=== PATIENT | male | born 1945 | race Caucasian/White ===

== ENCOUNTER 2019-04-30 18:51 | Inpatient (IN) | payer MEDICARE ==
[~2019-04-30] VITALS: Ht 190.5 cm; Wt 98.1 kg
--- NOTE | 2019-04-30 20:01 | RAD ---
CT head without contrast. Maxilla facial CT without contrast. CT cervical spine without contrast. HISTORY: Fall, facial laceration. PQRS statement: CT scans at this facility use dose reduction including either automated exposure control, iterative reconstructions, and /or weight based radiation dosing via mA and kV modification when appropriate to reduce radiation dose to as low as reasonably achievable. CT head findings: Generalized brain atrophy. No intracranial hemorrhage, mass, hydrocephalus, extra-axial fluid collections or infarction. Small volume of fluid right sphenoid sinus. Skull base, calvarium, orbits and mastoids intact. IMPRESSION: No acute intracranial CT abnormality. Small volume of fluid within the sphenoid sinus could represent sinusitis. Maxillofacial CT findings: Right maxillary sinus is atelectatic. Facial bones intact. No facial bone fracture. Mandible, maxilla, nasal bones and orbits intact. No orbital edema or hematoma. There is mild right facial soft tissue edema overlying the maxilla. IMPRESSION: Facial bones intact. CT cervical spine findings: Craniocervical junction intact. Small bone cyst of the base of the C2 odontoid and arthritic change at the atlantodental articulation. Cervical vertebral body height and alignment intact. 2 mm anterolisthesis of C3 on C4 associated with facet arthritis. Multilevel cervical disc height loss, soft disc bulges as well as prominent endplate and uncovertebral facet spurs with spinal canal and neural foraminal stenoses with severe stenotic disease at several levels the degree of which likely increases risk for spinal cord impingement at C4-C5 and C5-C6. Lung apices and paraspinal tissues are unremarkable. IMPRESSION: No acute osseous injury of the cervical spine. Cervical disc disease and arthritic change as described above. Exposure: One or more of the following individualized dose reduction techniques were utilized for this examination: 1. Automated exposure control 2. Adjustment of the mA and/or kV according to patient size 3. Use of iterative reconstruction technique Electronically signed by: Bari Hays MD (04/30/2019 7:58 PM) [facility]
--- NOTE | 2019-04-30 20:55 | RAD ---
Left elbow x-rays 3 views HISTORY: Fall, pain. FINDINGS: Only 2 oblique lateral and AP films are acquired. Due to the obliquity and overlapping of bony densities there is limited assessment for nondisplaced intra-articular fractures or elevation of the fat pads due to a radiographically occult fracture from a joint effusion. In light of this no obvious fracture is evident. There is probable spurring of the ulna coronoid. If there is a high clinical suspicion of a fracture consider repeat imaging with better patient positioning or CT imaging. IMPRESSION: No acute osseous injury evident. Please see discussion above. Left humerus AP lateral x-rays 2 views HISTORY: Fall, pain. FINDINGS: There is acute traumatic spiral fracture of the humeral neck and proximal shaft distracted by at least 3 cm at its lower aspect. No humeral head dislocation evident. Soft tissues unremarkable. IMPRESSION: Acute traumatic spiral fracture with mild distraction of the humeral neck and proximal humeral shaft. IMPRESSION: Oblique positioning limits sensitivity to detect a fracture. No gross evidence of a fracture or dislocation. See discussion above. Electronically signed by: Bari Hays MD (04/30/2019 8:52 PM) [facility]
--- NOTE | 2019-04-30 21:11 | PHYS DOC ---
Past Medical History Past Medical History: Dementia, High Cholesterol, Hypertension, Other (drop foot bilaterally) (YNES BHATTI APRN) Past Surgical History: No Surgical History (YNES BHATTI APRN) Alcohol Use: None Drug Use: None (YNES BHATTI APRN) Attending Signature I have participated in the care of this patient and I have reviewed and agree with all pertinent clinical information above including history, exam, and recommendations. (BONIFACIO MCKEON MD) Adult General Chief Complaint Chief Complaint: MECHANICAL FALL HPI HPI Patient is a 73 year old male with history of diabetes type 2, high cholesterol, dementia, dropped feet bilaterally, who presents to the ED today with the , states patient was walking in the house and fell. Patient is complaining of left humerus pain. denies patient having any loss of consciousness. is in panic moderate right now speaking very fast. Patient is calm in no distress. (YNES BHATTI APRN) Review of Systems Review of Systems Constitutional: Denies fever or chills [] Eyes: Denies change in visual acuity, redness, or eye pain [] HENT: Denies nasal congestion or sore throat [] Respiratory: Denies cough or shortness of breath [] Cardiovascular: No additional information not addressed in HPI [] GI: Denies abdominal pain, nausea, vomiting, bloody stools or diarrhea [] : Denies dysuria or hematuria [] Musculoskeletal: Left humerus pain Integument: Denies rash or skin lesions [] Neurologic: Denies headache, focal weakness or sensory changes [] All other systems were reviewed and found to be within normal limits, except as documented in this note. (YNES BHATTI APRN) Current Medications Current Medications Current Medications Medications (Trade) Dose Ordered Sig/Archie Start Time Stop Time Status Last Admin Dose Admin Morphine Sulfate (Morphine Sulfate) 4 mg PRN Q2HR PRN 04/30/19 21:15 05/01/19 21:14 04/30/19 21:52 4 MG (BONIFACIO MCKEON MD) Allergies Allergies Allergies Coded Allergies Type Severity Reaction Last Updated Verified No Known Drug Allergies 04/30/19 No (BONIFACIO MCKEON MD) Physical Exam Physical Exam Constitutional: Well developed, well nourished, no acute distress, non-toxic appearance. [] HENT: Normocephalic, atraumatic, bilateral external ears normal, oropharynx moist, no oral exudates, nose normal. [] Eyes: PERRLA, EOMI, conjunctiva normal, no discharge. [] Neck: Normal range of motion, no tenderness, supple, no stridor. [] Cardiovascular:Heart rate regular rhythm, no murmur [] Lungs & Thorax: Bilateral breath sounds clear to auscultation [] Abdomen: Bowel sounds normal, soft, no tenderness, no masses, no pulsatile masses. [] Skin: Warm, dry, bruising noted on the chin with trace bleeding. Back: No tenderness, no CVA tenderness. [] Extremities: Left upper extremity with no obvious deformity. Tenderness on palpation of the mid humerus. Slightly Limited passive range of motion to the left upper extremity due to pain. Adequate radial, medial, or loss of sensation to the left upper extremity. +2 left radial pulse. Cap refill less than 2 seconds the left fingers. Neurologic: Alert and oriented X 1-2, normal motor function, normal sensory function, no focal deficits noted. [] Psychologic: Affect normal, judgement normal, mood normal. [] (YNES BHATTI APRN) Current Patient Data Vital Signs Vital Signs Date Time Temp Pulse Resp B/P (MAP) Pulse Ox O2 Delivery O2 Flow Rate FiO2 04/30/19 22:02 94 16 04/30/19 21:52 99 Room Air 04/30/19 18:51 97.9 180/97 (124) 97.9 (BONIFACIO MCKEON MD) Lab Values Laboratory Tests Test 04/30/19 20:14 White Blood Count 9.6 x10^3/uL (4.0-11.0) Red Blood Count 4.56 x10^6/uL (4.30-5.70) Hemoglobin 14.1 g/dL (13.0-17.5) Hematocrit 42.0 % (39.0-53.0) Mean Corpuscular Volume 92 fL (79-100) Mean Corpuscular Hemoglobin 31 pg (25-35) Mean Corpuscular Hemoglobin Concent 34 g/dL (31-37) Red Cell Distribution Width 13.6 % (11.5-14.5) Platelet Count 209 x10^3/uL (140-400) Neutrophils (%) (Auto) 85 % (31-73) H Lymphocytes (%) (Auto) 7 % (24-48) L Monocytes (%) (Auto) 6 % (0-9) Eosinophils (%) (Auto) 1 % (0-3) Basophils (%) (Auto) 1 % (0-3) Neutrophils # (Auto) 8.1 x10^3/uL (1.8-7.7) H Lymphocytes # (Auto) 0.7 x10^3/uL (1.0-4.8) L Monocytes # (Auto) 0.6 x10^3/uL (0.0-1.1) Eosinophils # (Auto) 0.1 x10^3/uL (0.0-0.7) Basophils # (Auto) 0.1 x10^3/uL (0.0-0.2) Sodium Level 140 mmol/L (136-145) Potassium Level 3.2 mmol/L (3.5-5.1) L Chloride Level 101 mmol/L (98-107) Carbon Dioxide Level 31 mmol/L (21-32) Anion Gap 8 (6-14) Blood Urea Nitrogen 12 mg/dL (8-26) Creatinine 1.0 mg/dL (0.7-1.3) Estimated GFR (Cockcroft-Gault) 73.0 BUN/Creatinine Ratio 12 (6-20) Glucose Level 154 mg/dL (70-99) H Calcium Level 8.9 mg/dL (8.5-10.1) Total Bilirubin 0.5 mg/dL (0.2-1.0) Aspartate Amino Transferase (AST) 17 U/L (15-37) Alanine Aminotransferase (ALT) 18 U/L (16-63) Alkaline Phosphatase 98 U/L (46-116) Total Protein 7.1 g/dL (6.4-8.2) Albumin 3.7 g/dL (3.4-5.0) Albumin/Globulin Ratio 1.1 (1.0-1.7) Laboratory Tests 04/30/19 20:14 Laboratory Tests 04/30/19 20:14 (BONIFACIO MCKEON MD) EKG EKG [] (YNES BHATTI APRN) Radiology/Procedures Radiology/Procedures []PROCEDURE: ELBOW LEFT 2V Left elbow x-rays 3 views HISTORY: Fall, pain. FINDINGS: Only 2 oblique lateral and AP films are acquired. Due to the obliquity and overlapping of bony densities there is limited assessment for nondisplaced intra-articular fractures or elevation of the fat pads due to a radiographically occult fracture from a joint effusion. In light of this no obvious fracture is evident. There is probable spurring of the ulna coronoid. If there is a high clinical suspicion of a fracture consider repeat imaging with better patient positioning or CT imaging. IMPRESSION: No acute osseous injury evident. Please see discussion above. Left humerus AP lateral x-rays 2 views HISTORY: Fall, pain. FINDINGS: There is acute traumatic spiral fracture of the humeral neck and proximal shaft distracted by at least 3 cm at its lower aspect. No humeral head dislocation evident. Soft tissues unremarkable. IMPRESSION: Acute traumatic spiral fracture with mild distraction of the humeral neck and proximal humeral shaft. IMPRESSION: Oblique positioning limits sensitivity to detect a fracture. No gross evidence of a fracture or dislocation. See discussion above. Electronically signed by: Naty Hays MD (04/30/2019 8:52 PM) [facility] DICTATED and SIGNED BY: NATY HAYS MD DATE: 04/30/192051 (YNES BHATTI APRN) Course & Med Decision Making Course & Med Decision Making Pertinent Labs and Imaging studies reviewed. (See chart for details) This is a 73-year-old male patient presenting to the ED today with left humerus pain after falling. Left humeral x-rays interpreted by radiologist were noted for-acute traumatic spiral fracture with mild distraction of the humeral neck and proximal humeral shaft. CT of the head, cervical spine, maxillofacial were negative for any acute findings. Sling provided to the left upper extremity by the ED RN. Neurovascular exam is intact. is requesting patient to be admitted because she has to work 8 hours a day and would like home health as well as what ever helpe they can get at home arranged, unfortunately we are not able to set up the care they need at home from the ED. Spoke with Dr. Dennis who accepted patient for admission Routine consult placed for Dr. Rendon (YNES BHATTI APRN) Martita Disclaimer Dragon Disclaimer This electronic medical record was generated, in whole or in part, using a voice recognition dictation system. (YNES BHATTI APRN) Departure Departure Impression: Primary Impression: Fall Additional Impressions: Left humeral fracture Chin contusion Disposition: ADMITTED INPATIENT Condition: STABLE Referrals: RAYMOND ESTRADA MD (PCP) Problem Qualifiers Primary Impression: Fall Encounter type: initial encounter Qualified Codes: W19.XXXA - Unspecified fall, initial encounter Additional Impressions: Left humeral fracture Encounter type: initial encounter Humerus Location: shaft Fracture type: closed Fracture morphology: oblique Fracture alignment: nondisplaced Qualified Codes: S42.335A - Nondisplaced oblique fracture of shaft of humerus, left arm, initial encounter for closed fracture Chin contusion Encounter type: initial encounter Qualified Codes: S00.83XA - Contusion of other part of head, initial encounter YNES BHATTI APRN Apr 30, 2019 21:11 BONIFACIO MCKEON MD Apr 30, 2019 23:19
[2019-04-30 21:18] LABS: BASO # 0.1 x10^3/uL (0.0-0.2); BASO % 1 % (0-3); EOS # 0.1 x10^3/uL (0.0-0.7); EOS % 1 % (0-3); HEMOGLOBIN 14.1 g/dL (13.0-17.5); LYMPH # 0.7 x10^3/uL (1.0-4.8); LYMPH % 7 % (24-48); MEAN CORPUSCULAR HEMOGLOBIN 31 pg (25-35); MEAN CORPUSCULAR HGB CONC 34 g/dL (31-37); MEAN CORPUSCULAR VOLUME 92 fL (79-100); MONO # 0.6 x10^3/uL (0.0-1.1); MONO % 6 % (0-9); NEUT # 8.1 x10^3/uL (1.8-7.7); NEUT % 85 % (31-73); PLATELET COUNT 209 x10^3/uL (140-400); RED BLOOD COUNT 4.56 x10^6/uL (4.30-5.70); RED CELL DISTRIBUTION WIDTH 13.6 % (11.5-14.5); WHITE BLOOD COUNT 9.6 x10^3/uL (4.0-11.0)
[2019-04-30 21:32] LABS: CALCIUM 8.9 mg/dL (8.5-10.1); POTASSIUM 3.2 mmol/L (3.5-5.1)
[2019-04-30 21:37] LABS: ALBUMIN 3.7 g/dL (3.4-5.0); ALBUMIN/GLOBULIN RATIO 1.1 (1.0-1.7); TOTAL BILIRUBIN 0.5 mg/dL (0.2-1.0); TOTAL PROTEIN 7.1 g/dL (6.4-8.2)
[2019-04-30] MEDS: MORPHINE SULFATE 4 MG/ML VIAL. IV PRN (21:52)
[2019-04-30 23:45] VITALS: BP 108/65
[2019-05-01] MEDS: MORPHINE SULFATE 4 MG/ML VIAL. IV PRN ×2 (00:35→05:35)
[2019-05-01 03:00] VITALS: BP 120/75
[2019-05-01] MEDS ORDERED: HALOPERIDOL LACTATE 5 MG/ML VIAL. IVP ONE (03:00)
--- NOTE | 2019-05-01 04:39 | NUR ---
Patient admitted to [address] [place] [address]. Patient extremely confused once left. Patient removed arm sling and refused nurse putting it back on. Patient agitated and impulsive. Refused SCD's. notified and Haldol given PRN.
[2019-05-01 07:00] VITALS: BP 122/78
[2019-05-01] MEDS ORDERED: MEMA10TA PO (07:23)
[2019-05-01] MEDS ORDERED: SIMV40TA18 PO (07:23)
[2019-05-01] MEDS ORDERED: DONE10TA7 PO (07:23)
[2019-05-01] MEDS ORDERED: OXCA300T19 PO (07:23)
[2019-05-01] MEDS ORDERED: AMLO5TAB10 PO (07:23)
[2019-05-01] MEDS ORDERED: HYDR12.58 PO (07:23)
[2019-05-01] MEDS ORDERED: POLYETHYLENE GLYCOL 3350 17 GM PACKET. PO PRN (08:15)
[2019-05-01] MEDS ORDERED: MORPHINE SULFATE 2 MG/ML VIAL. IV PRN (08:15)
[2019-05-01] MEDS ORDERED: MAGNESIUM HYDROXIDE 2,400 MG/30 ML ORAL.SUSP. PO PRN (08:15)
--- NOTE | 2019-05-01 10:22 | PDOC1 ---
History and Physical Date of Admission Date of Admission DATE: 05/01/19 TIME: 10:16 Identification/Chief Complaint Chief Complaint fall at home, witnessed by Source Source: Caregiver, Chart review History of Present Illness History of Present Illness he is not the best historian as he has dementia , he lives at home with and helps me with HPI. FAll, traumatic, hurt his left arm and no LOC. NOw has an acute Left spiral fx, he has signif swelling and pain and limited rOM on that left shoulder, not on any blood thinners at home, I Discussed my findings and provided copy of the xray to , Agreeable to sx., DNR as per , HE refused the left arm sling Past Medical History Cardiovascular: HTN, Hyperlipidemia CENTRAL NERVOUS SYSTEM: Dementia Past Surgical History Past Surgical History: No pertinent history Family History Family History: No Significant Social History Smoke: No ALCOHOL: none Drugs: None Current Problem List Problem List Problems Medical Problems: (1) Chin contusion Status: Acute (2) Fall Status: Acute (3) Left humeral fracture Status: Acute Current Medications Current Medications Current Medications Morphine Sulfate (Morphine Sulfate) 4 mg PRN Q2HR PRN IV PAIN Last administered on 05/01/19at 05:35; Start 04/30/19 at 21:15; Stop 05/01/19 at 08:18; Status DC Haloperidol Lactate (Haldol Inj) 2 mg 1X ONCE IVP Last administered on 05/01/19at 03:04; Start 05/01/19 at 03:00; Stop 05/01/19 at 03:01; Status DC Amlodipine Besylate (Norvasc) 5 mg QHS PO ; Start 05/01/19 at 21:00 Donepezil HCl (Aricept) 20 mg DAILY PO ; Start 05/01/19 at 09:00 Memantine (Namenda) 10 mg BID PO ; Start 05/01/19 at 09:00 Oxcarbazepine (Trileptal) 300 mg BID PO ; Start 05/01/19 at 09:00 Simvastatin (Zocor) 40 mg QHS PO ; Start 05/01/19 at 21:00 Hydrochlorothiazide (Microzide) 12.5 mg DAILY PO ; Start 05/01/19 at 09:00 Haloperidol Lactate (Haldol Inj) 5 mg PRN Q6HRS PRN IVP AGITATION; Start 05/01/19 at 08:15 Lorazepam (Ativan Inj) 2 mg PRN Q4HRS PRN IVP ANXIETY / AGITATION; Start 05/01/19 at 08:15 Morphine Sulfate (Morphine Sulfate) 2 mg PRN Q2HR PRN IV PAIN; Start 05/01/19 a t 08:15 Oxycodone/ Acetaminophen (Percocet 5/325) 1 tab PRN Q4HRS PRN PO PAIN; Start 05/01/19 at 08:15 Magnesium Hydroxide (Milk Of Magnesia) 2,400 mg PRN DAILY PRN PO CONSTIPATION; Start 05/01/19 at 08:15 Docusate Sodium (Colace) 100 mg DAILY PO ; Start 05/01/19 at 09:00 Polyethylene Glycol (miraLAX PACKET) 17 gm PRN DAILY PRN PO CONSTIPATION; Start 05/01/19 at 08:15 Active Scripts Active Reported Amlodipine Besylate 5 Mg Tablet 5 Mg PO QHS Hydrochlorothiazide Tablet (Hydrochlorothiazide) 12.5 Mg Tablet 12.5 Mg PO DAILY Simvastatin 40 Mg Tablet 1 Tab PO QHS Oxcarbazepine 300 Mg Tablet 1 Tab PO BID 30 Days Donepezil Hcl 10 Mg Tablet 2 Tab PO DAILY Namenda (Memantine Hcl) 10 Mg Tablet 10 Mg PO BID Allergies Allergies: Coded Allergies: No Known Drug Allergies (Unverified , 04/30/19) ROS Review of System left shoulder pain, all else he denies Physical Exam General: Alert, Oriented X3, Cooperative, No acute distress HEENT: Atraumatic, PERRLA, EOMI Lungs: Clear to auscultation, Normal air movement Heart: S1S2, RRR, no thrills, no rubs, no gallops Cardiovascular: S1, S2 Breasts: Normal, Rt breast nml w/o mass, Lt breast nml w/o mass, Nipples normal Male Genitals Exam: normal genitalia, normal prostate Extremities: No clubbing, No cyanosis, Other (tenderness, swelling, limited rOM left shoulder, he has brusing there) Skin: No rashes, No breakdown, No significant lesion Vitals Vitals Vital Signs Date Time Temp Pulse Resp B/P (MAP) Pulse Ox O2 Delivery O2 Flow Rate FiO2 05/01/19 07:00 98.3 96 16 122/78 (93) 98 Room Air 98.3 Labs Labs Laboratory Tests Test 04/30/19 20:14 04/30/19 23:06 White Blood Count 9.6 x10^3/uL (4.0-11.0) Red Blood Count 4.56 x10^6/uL (4.30-5.70) Hemoglobin 14.1 g/dL (13.0-17.5) Hematocrit 42.0 % (39.0-53.0) Mean Corpuscular Volume 92 fL (79-100) Mean Corpuscular Hemoglobin 31 pg (25-35) Mean Corpuscular Hemoglobin Concent 34 g/dL (31-37) Red Cell Distribution Width 13.6 % (11.5-14.5) Platelet Count 209 x10^3/uL (140-400) Neutrophils (%) (Auto) 85 % (31-73) Lymphocytes (%) (Auto) 7 % (24-48) Monocytes (%) (Auto) 6 % (0-9) Eosinophils (%) (Auto) 1 % (0-3) Basophils (%) (Auto) 1 % (0-3) Neutrophils # (Auto) 8.1 x10^3/uL (1.8-7.7) Lymphocytes # (Auto) 0.7 x10^3/uL (1.0-4.8) Monocytes # (Auto) 0.6 x10^3/uL (0.0-1.1) Eosinophils # (Auto) 0.1 x10^3/uL (0.0-0.7) Basophils # (Auto) 0.1 x10^3/uL (0.0-0.2) Sodium Level 140 mmol/L (136-145) Potassium Level 3.2 mmol/L (3.5-5.1) Chloride Level 101 mmol/L (98-107) Carbon Dioxide Level 31 mmol/L (21-32) Anion Gap 8 (6-14) Blood Urea Nitrogen 12 mg/dL (8-26) Creatinine 1.0 mg/dL (0.7-1.3) Estimated GFR (Cockcroft-Gault) 73.0 BUN/Creatinine Ratio 12 (6-20) Glucose Level 154 mg/dL (70-99) Calcium Level 8.9 mg/dL (8.5-10.1) Total Bilirubin 0.5 mg/dL (0.2-1.0) Aspartate Amino Transf (AST/SGOT) 17 U/L (15-37) Alanine Aminotransferase (ALT/SGPT) 18 U/L (16-63) Alkaline Phosphatase 98 U/L (46-116) Total Protein 7.1 g/dL (6.4-8.2) Albumin 3.7 g/dL (3.4-5.0) Albumin/Globulin Ratio 1.1 (1.0-1.7) Glucose (Fingerstick) 194 mg/dL (70-99) Laboratory Tests Test 04/30/19 20:14 04/30/19 23:06 White Blood Count 9.6 x10^3/uL (4.0-11.0) Red Blood Count 4.56 x10^6/uL (4.30-5.70) Hemoglobin 14.1 g/dL (13.0-17.5) Hematocrit 42.0 % (39.0-53.0) Mean Corpuscular Volume 92 fL (79-100) Mean Corpuscular Hemoglobin 31 pg (25-35) Mean Corpuscular Hemoglobin Concent 34 g/dL (31-37) Red Cell Distribution Width 13.6 % (11.5-14.5) Platelet Count 209 x10^3/uL (140-400) Neutrophils (%) (Auto) 85 % (31-73) Lymphocytes (%) (Auto) 7 % (24-48) Monocytes (%) (Auto) 6 % (0-9) Eosinophils (%) (Auto) 1 % (0-3) Basophils (%) (Auto) 1 % (0-3) Neutrophils # (Auto) 8.1 x10^3/uL (1.8-7.7) Lymphocytes # (Auto) 0.7 x10^3/uL (1.0-4.8) Monocytes # (Auto) 0.6 x10^3/uL (0.0-1.1) Eosinophils # (Auto) 0.1 x10^3/uL (0.0-0.7) Basophils # (Auto) 0.1 x10^3/uL (0.0-0.2) Sodium Level 140 mmol/L (136-145) Potassium Level 3.2 mmol/L (3.5-5.1) Chloride Level 101 mmol/L (98-107) Carbon Dioxide Level 31 mmol/L (21-32) Anion Gap 8 (6-14) Blood Urea Nitrogen 12 mg/dL (8-26) Creatinine 1.0 mg/dL (0.7-1.3) Estimated GFR (Cockcroft-Gault) 73.0 BUN/Creatinine Ratio 12 (6-20) Glucose Level 154 mg/dL (70-99) Calcium Level 8.9 mg/dL (8.5-10.1) Total Bilirubin 0.5 mg/dL (0.2-1.0) Aspartate Amino Transf (AST/SGOT) 17 U/L (15-37) Alanine Aminotransferase (ALT/SGPT) 18 U/L (16-63) Alkaline Phosphatase 98 U/L (46-116) Total Protein 7.1 g/dL (6.4-8.2) Albumin 3.7 g/dL (3.4-5.0) Albumin/Globulin Ratio 1.1 (1.0-1.7) Glucose (Fingerstick) 194 mg/dL (70-99) VTE Prophylaxis Ordered VTE Prophylaxis Devices: Yes VTE Pharmacological Prophylaxi: Yes Assessment/Plan Assessment/Plan Acute left spiral fracture humerus LEft distal shaft humeral fx TRaumatic fall, mechanical at home, initial encounter Dementia on meds hTN, dyslipidemia on meds DNR PLAN: NPO, start IVF since NPO Ortho consult PAin control I recommended arm sling PAin control DNR MAy check vit D levels ANJEL HATCH MD May 01, 2019 10:22
[2019-05-01 11:00] VITALS: BP 130/82
[2019-05-01] MEDS ORDERED: IV NORMAL SALINE 1000ML BAG 1,000 ML IV ONE (11:00)
--- NOTE | 2019-05-01 12:04 | PDOC2 ---
CONSULT Date of Consult Date of Consult DATE: 05/01/19 TIME: 11:56 Reason for Consult Reason for Consult: Left humerus fracture Identification/Chief Complaint Chief Complaint Left arm pain Source Source: Caregiver, Chart review, Patient History of Present Illness Reason for Visit: I get most of the history from the . The patient has dementia and had mild difficulty answering questions. This 73-year-old retired right-handed man fell at home and fractured his arm. He no longer drives. He is a DNR although there is no active life-threatening illness. Dementia has been progressive for 3 years. His leaves during the day to go to work and is gone for about 10 hours and he doesn't eat during the day. He has had a couple of falls recently. Past Medical History Cardiovascular: HTN, Hyperlipidemia CENTRAL NERVOUS SYSTEM: Dementia Past Surgical History Past Surgical History: No pertinent history Family History Family History: No Significant Social History No ALCOHOL: none Drugs: None Lives: with Family Current Problem List Problem List Problems Medical Problems: (1) Chin contusion Status: Acute (2) Fall Status: Acute (3) Left humeral fracture Status: Acute Current Medications Current Medications Current Medications Morphine Sulfate (Morphine Sulfate) 4 mg PRN Q2HR PRN IV PAIN Last administered on 05/01/19at 05:35; Start 04/30/19 at 21:15; Stop 05/01/19 at 08:18; Status DC Haloperidol Lactate (Haldol Inj) 2 mg 1X ONCE IVP Last administered on 05/01/19at 03:04; Start 05/01/19 at 03:00; Stop 05/01/19 at 03:01; Status DC Amlodipine Besylate (Norvasc) 5 mg QHS PO ; Start 05/01/19 at 21:00 Donepezil HCl (Aricept) 20 mg DAILY PO ; Start 05/01/19 at 09:00 Memantine (Namenda) 10 mg BID PO ; Start 05/01/19 at 09:00 Oxcarbazepine (Trileptal) 300 mg BID PO ; Start 05/01/19 at 09:00 Simvastatin (Zocor) 40 mg QHS PO ; Start 05/01/19 at 21:00 Hydrochlorothiazide (Microzide) 12.5 mg DAILY PO ; Start 05/01/19 at 09:00 Haloperidol Lactate (Haldol Inj) 5 mg PRN Q6HRS PRN IVP AGITATION; Start 05/01/19 at 08:15 Lorazepam (Ativan Inj) 2 mg PRN Q4HRS PRN IVP ANXIETY / AGITATION; Start 05/01/19 at 08:15 Morphine Sulfate (Morphine Sulfate) 2 mg PRN Q2HR PRN IV PAIN Last administered on 05/01/19at 10:30; Start 05/01/19 at 08:15 Oxycodone/ Acetaminophen (Percocet 5/325) 1 tab PRN Q4HRS PRN PO PAIN; Start 05/01/19 at 08:15 Magnesium Hydroxide (Milk Of Magnesia) 2,400 mg PRN DAILY PRN PO CONSTIPATION; Start 05/01/19 at 08:15 Docusate Sodium (Colace) 100 mg DAILY PO ; Start 05/01/19 at 09:00 Polyethylene Glycol (miraLAX PACKET) 17 gm PRN DAILY PRN PO CONSTIPATION; Start 05/01/19 at 08:15 Sodium Chloride 1,000 ml @ 75 mls/hr 1X ONCE IV ; Start 05/01/19 at 11:00; S top 05/02/19 at 00:19 Active Scripts Active Reported Amlodipine Besylate 5 Mg Tablet 5 Mg PO QHS Hydrochlorothiazide Tablet (Hydrochlorothiazide) 12.5 Mg Tablet 12.5 Mg PO DAILY Simvastatin 40 Mg Tablet 1 Tab PO QHS Oxcarbazepine 300 Mg Tablet 1 Tab PO BID 30 Days Donepezil Hcl 10 Mg Tablet 2 Tab PO DAILY Namenda (Memantine Hcl) 10 Mg Tablet 10 Mg PO BID Allergies Allergies: Coded Allergies: No Known Drug Allergies (Unverified , 04/30/19) ROS PSYCHOLOGICAL ROS: YES: Disorientation Hematological and Lymphatic: YES: Brusing Cardiovascular: No Chest Pain Gastrointestinal: Yes Other (decreased appetite) Neurological: Yes Memory Loss Physical Exam General: Alert, Cooperative HEENT: Other (the head is atraumatic except for an abrasion/contusion on the chin) Lungs: Normal air movement Heart: Regular rate Abdomen: Soft Extremities: Other (he has a left arm sling but took it off. The left arm has diffuse swelling and there is some ecchymosis but there is no evidence of an open fracture. His hands are arthritic with large Heberden's and Richard's nodes and probably have decreased finger range of motion chronically, but he was able to demonstrate motor function of the radial, ulnar, and median nerves distally without difficulty. Pulses and sensation are intact distally. The elbow is nontender.) Skin: Other (ecchymosis left upper arm) Neuro: Sensation intact, Other (speech was slightly slow) Psych/Mental Status: Mood NL Vitals VITALS Vital Signs Date Time Temp Pulse Resp B/P (MAP) Pulse Ox O2 Delivery O2 Flow Rate FiO2 05/01/19 11:00 97.9 93 16 130/82 (98) 98 Room Air 97.9 Labs Labs Laboratory Tests Test 04/30/19 20:14 04/30/19 23:06 White Blood Count 9.6 x10^3/uL (4.0-11.0) Red Blood Count 4.56 x10^6/uL (4.30-5.70) Hemoglobin 14.1 g/dL (13.0-17.5) Hematocrit 42.0 % (39.0-53.0) Mean Corpuscular Volume 92 fL (79-100) Mean Corpuscular Hemoglobin 31 pg (25-35) Mean Corpuscular Hemoglobin Concent 34 g/dL (31-37) Red Cell Distribution Width 13.6 % (11.5-14.5) Platelet Count 209 x10^3/uL (140-400) Neutrophils (%) (Auto) 85 % (31-73) Lymphocytes (%) (Auto) 7 % (24-48) Monocytes (%) (Auto) 6 % (0-9) Eosinophils (%) (Auto) 1 % (0-3) Basophils (%) (Auto) 1 % (0-3) Neutrophils # (Auto) 8.1 x10^3/uL (1.8-7.7) Lymphocytes # (Auto) 0.7 x10^3/uL (1.0-4.8) Monocytes # (Auto) 0.6 x10^3/uL (0.0-1.1) Eosinophils # (Auto) 0.1 x10^3/uL (0.0-0.7) Basophils # (Auto) 0.1 x10^3/uL (0.0-0.2) Sodium Level 140 mmol/L (136-145) Potassium Level 3.2 mmol/L (3.5-5.1) Chloride Level 101 mmol/L (98-107) Carbon Dioxide Level 31 mmol/L (21-32) Anion Gap 8 (6-14) Blood Urea Nitrogen 12 mg/dL (8-26) Creatinine 1.0 mg/dL (0.7-1.3) Estimated GFR (Cockcroft-Gault) 73.0 BUN/Creatinine Ratio 12 (6-20) Glucose Level 154 mg/dL (70-99) Calcium Level 8.9 mg/dL (8.5-10.1) Total Bilirubin 0.5 mg/dL (0.2-1.0) Aspartate Amino Transf (AST/SGOT) 17 U/L (15-37) Alanine Aminotransferase (ALT/SGPT) 18 U/L (16-63) Alkaline Phosphatase 98 U/L (46-116) Total Protein 7.1 g/dL (6.4-8.2) Albumin 3.7 g/dL (3.4-5.0) Albumin/Globulin Ratio 1.1 (1.0-1.7) Glucose (Fingerstick) 194 mg/dL (70-99) Laboratory Tests Test 04/30/19 20:14 04/30/19 23:06 White Blood Count 9.6 x10^3/uL (4.0-11.0) Red Blood Count 4.56 x10^6/uL (4.30-5.70) Hemoglobin 14.1 g/dL (13.0-17.5) Hematocrit 42.0 % (39.0-53.0) Mean Corpuscular Volume 92 fL (79-100) Mean Corpuscular Hemoglobin 31 pg (25-35) Mean Corpuscular Hemoglobin Concent 34 g/dL (31-37) Red Cell Distribution Width 13.6 % (11.5-14.5) Platelet Count 209 x10^3/uL (140-400) Neutrophils (%) (Auto) 85 % (31-73) Lymphocytes (%) (Auto) 7 % (24-48) Monocytes (%) (Auto) 6 % (0-9) Eosinophils (%) (Auto) 1 % (0-3) Basophils (%) (Auto) 1 % (0-3) Neutrophils # (Auto) 8.1 x10^3/uL (1.8-7.7) Lymphocytes # (Auto) 0.7 x10^3/uL (1.0-4.8) Monocytes # (Auto) 0.6 x10^3/uL (0.0-1.1) Eosinophils # (Auto) 0.1 x10^3/uL (0.0-0.7) Basophils # (Auto) 0.1 x10^3/uL (0.0-0.2) Sodium Level 140 mmol/L (136-145) Potassium Level 3.2 mmol/L (3.5-5.1) Chloride Level 101 mmol/L (98-107) Carbon Dioxide Level 31 mmol/L (21-32) Anion Gap 8 (6-14) Blood Urea Nitrogen 12 mg/dL (8-26) Creatinine 1.0 mg/dL (0.7-1.3) Estimated GFR (Cockcroft-Gault) 73.0 BUN/Creatinine Ratio 12 (6-20) Glucose Level 154 mg/dL (70-99) Calcium Level 8.9 mg/dL (8.5-10.1) Total Bilirubin 0.5 mg/dL (0.2-1.0) Aspartate Amino Transf (AST/SGOT) 17 U/L (15-37) Alanine Aminotransferase (ALT/SGPT) 18 U/L (16-63) Alkaline Phosphatase 98 U/L (46-116) Total Protein 7.1 g/dL (6.4-8.2) Albumin 3.7 g/dL (3.4-5.0) Albumin/Globulin Ratio 1.1 (1.0-1.7) Glucose (Fingerstick) 194 mg/dL (70-99) Images Images Report reviewed, images independently reviewed. Long spiral fracture of the humerus, no comminution, moderate angulation. Assessment/Plan Assessment/Plan Closed isolated spiral humeral fracture without radial nerve or other neurovascular injury. The recommended treatment for closed isolated humeral shaft fracture without nerve injury is nonoperative, even in a patient with higher demands. I recommend the arm sling if he will wear it. Office follow-up. He can be up wi th PT, and gravity will help maintain reduction. He should wear the sling at least when he is out of bed. I will prescribe a humeral fracture brace (Pruitt brace) for additional comfort and stabilization. I suspect he will need SNU based on my discussion with his . Frequent falls, difficulty caring for himself, now more immobile with this fracture. I discussed all of this with the patient and his and they are in agreement. NYDIA PEACE MD May 01, 2019 12:04
--- NOTE | 2019-05-01 13:06 | RAD ---
CT head without contrast. CT cervical spine without contrast. CT left shoulder without contrast. PQRS statement: CT scans at this facility use dose reduction including either automated exposure control, iterative reconstructions, and /or weight based radiation dosing via mA and kV modification when appropriate to reduce radiation dose to as low as reasonably achievable. HISTORY: Humerus fracture, found down, injury. CT head findings: Generalized brain atrophy stable. No intracranial hemorrhage, mass, hydrocephalus or infarction. Mild fluid right sphenoid sinus stable. Orbits, mastoids and bones are unremarkable. IMPRESSION: No acute reveal CT abnormality. Stable exam. CT cervical spine findings: Craniocervical junction intact. Osteophytic change C1-C2 articulation. Cervical vertebral body height and alignment intact. 2 mm anterolisthesis of C3 on C4 associated with disc disease and facet arthritis is stable. No fracture of the cervical spine. Lung apices and paraspinal tissues are unremarkable. Multilevel cervical disc height loss, disc osteophytes and uncovertebral facet spurs with spinal canal and neural foraminal stenoses with severe stenoses at several levels particularly at C4-C5 and C5-C6 likely increasing risk for spinal cord impingement. IMPRESSION: No acute osseous injury of the cervical spine. Stable exam. CT left shoulder findings: There is a spiral fracture of the proximal humeral shaft and neck for length 12 cm the inferior aspect of the fracture is distracted by 4 cm, the uppermost aspect of the fracture demonstrates cortical impaction of the lateral humeral cortex into the trabecular bone of the lateral humeral head and neck below the greater tuberosity, and there is an impacted cortical defect of 7 mm of the lateral humeral head. The fracture does not appear to involve the tendon footplate at the greater tuberosity and does not involve the intertubercular sulcus, lesser tuberosity or the articular cortex of the humeral head. No humeral head dislocation. The glenoid and coracoid are intact. No distraction of the navicular joint with clavicle osteophyte and acromion spur present. Most of the scapula is outside the [id number]. There is soft tissue edema surrounding the left shoulder and upper arm about fracture. IMPRESSION: Acute traumatic fracture of the left proximal humeral shaft and neck with mild impaction of the lateral humeral head as described above. Electronically signed by: Bari Hays MD (05/01/2019 1:03 PM) [facility]
[2019-05-01] MEDS: DONEPEZIL HCL 10 MG TABLET. PO SCH (13:29)
[2019-05-01] MEDS: hydroCHLOROthiazide 12.5 MG CAPSULE PO SCH (13:29)
[2019-05-01] MEDS: DOCUSATE SODIUM 100 MG CAPSULE. PO SCH (13:30)
[2019-05-01] MEDS: OXcarbazepine 300 MG TABLET PO SCH ×2 (13:30→20:26)
[2019-05-01] MEDS: HALOPERIDOL LACTATE 5 MG/ML VIAL. IVP PRN (13:30)
[2019-05-01] MEDS: MEMANTINE 10 MG TABLET. PO SCH ×2 (13:30→20:26)
[2019-05-01 15:00] VITALS: BP 131/77
[2019-05-01 19:00] VITALS: BP 130/77
[2019-05-01] MEDS: oxyCODONE/APAP 5/325 1 TAB TABLET PO PRN (20:26)
[2019-05-01] MEDS: SIMVASTATIN 40 MG TABLET. PO SCH (20:26)
[2019-05-01] MEDS: amLODIPine BESYLATE 5 MG TABLET PO SCH (20:26)
[2019-05-02 02:40] VITALS: BP 144/78
[2019-05-02 07:00] VITALS: BP 135/75
[2019-05-02] MEDS: oxyCODONE/APAP 5/325 1 TAB TABLET PO PRN ×3 (07:19→21:08)
[2019-05-02] MEDS: MEMANTINE 10 MG TABLET. PO SCH ×2 (07:19→21:07)
[2019-05-02] MEDS: DOCUSATE SODIUM 100 MG CAPSULE. PO SCH (07:19)
[2019-05-02] MEDS: DONEPEZIL HCL 10 MG TABLET. PO SCH (07:19)
[2019-05-02] MEDS: hydroCHLOROthiazide 12.5 MG CAPSULE PO SCH (07:19)
[2019-05-02] MEDS: OXcarbazepine 300 MG TABLET PO SCH ×2 (07:20→21:08)
[2019-05-02] MEDS ORDERED: OXYC1TAB15 PO (07:51)
--- NOTE | 2019-05-02 07:52 | SNU/HH DC ---
DISCHARGE ORDERS DISCHARGE INFORMATION: DISCHARGE DATE: May 02, 2019 FINAL DIAGNOSIS Problems Medical Problems: (1) Chin contusion Status: Acute (2) Fall Status: Acute (3) Left humeral fracture Status: Acute CONDITION ON DISCHARGE: Stable CODE STATUS: Code Status: DNR/DNI CORRECTION: SNF STAY <30 DAYS: Yes HOSPICE: HOSPICE: No HOSPICE EVAL & TREAT: No LTAC: ADMIT TO LTAC: No POST DISCHARGE ORDERS: ACTIVITY ORDERS: Other, see below (as tolerated but keep left arm on sling immobilized) DIET AFTER DISCHARGE: Regular WOUND/INCISION CARE: Other, see below (leftarm sling pls) CHECKS AFTER DISCHARGE: CHECKS AFTER DISCHARGE: Check blood press - daily FOLLOW-UP: PHYSICIAN FOLLOW-UP: dr chino on snu dc TREATMENT/EQUIPMENT ORDERS: ADAPTIVE EQUIPMENT NEEDED: Front wheeled walker Physical Therapy For: Evalulation/Treatment Occupational Therapy For: Evaluation/Treatment Speech Language Pathology For: Evaluation/Treatment DISCHARGE MEDICATIONS: Home Meds Active Scripts Oxycodone/Apap 5-325 (PERCOCET 5-325 MG TABLET ) 1 Each Tablet, 1 TAB PO PRN Q4HRS PRN for PAIN, #30 TAB Prov:ANJEL HATCH MD 05/02/19 Reported Medications Amlodipine Besylate (AMLODIPINE BESYLATE) 5 Mg Tablet, 5 MG PO QHS for HTN, TAB 05/01/19 Hydrochlorothiazide (HYDROCHLOROTHIAZIDE TABLET) 12.5 Mg Tablet, 12.5 MG PO DAILY for DIURETIC, TAB 0 Refills 05/01/19 Simvastatin (SIMVASTATIN) 40 Mg Tablet, 1 TAB PO QHS for cholesterol, #30 TAB 5 Refills 05/01/19 Oxcarbazepine (OXCARBAZEPINE) 300 Mg Tablet, 1 TAB PO BID for aggresion for 30 Days, #60 TAB 0 Refills 05/01/19 Donepezil Hcl (DONEPEZIL HCL) 10 Mg Tablet, 2 TAB PO DAILY for dementia, #90 TAB 3 Refills 05/01/19 Memantine Hcl (NAMENDA) 10 Mg Tablet, 10 MG PO BID for dementia, TAB 05/01/19 ANJEL HATCH MD May 02, 2019 07:52
--- NOTE | 2019-05-02 09:00 | NUR ---
wound care patient seen per wound care consult. wound assessment completed at this time. patient has a scabbed wound to the chin and left knee, skin prep applied to the areas. patient assessed from head to toe and no other wounds noted at this time. patient needs to be turning every 2 hours, patient turned to the right side at this time. recommendations of a P500 bed, per DACIA Glasgow patient to discharge today. notified [facility] Glasgow about the POC and wound care will continue to f/u for changes.
--- NOTE | 2019-05-02 10:15 | NUR ---
Patient up in chair with max assist with therapy (2-3 person assist). at bedside. 1:1 observation in use as well. Patient has arm sling to left arm. Humeral fracture brace has been ordered.
[2019-05-02 11:00] VITALS: BP 109/67
--- NOTE | 2019-05-02 11:10 | PDOC3 ---
Discharge Summary Visit Information Date of Admission: Apr 30, 2019 Date of Discharge: May 02, 2019 Admitting Diagnosis Comment: Acute left spiral fracture humerus - non op mx LEft distal shaft humeral fx - non op mx TRaumatic fall, mechanical at home, initial encounter Dementia on meds hTN, dyslipidemia on meds DNR Final Diagnosis Problems Medical Problems: (1) Chin contusion Status: Acute (2) Fall Status: Acute (3) Left humeral fracture Status: Acute Brief Hospital Course Allergies Allergies Coded Allergies Type Severity Reaction Last Updated Verified No Known Drug Allergies 04/30/19 No Vital Signs Vital Signs Date Time Temp Pulse Resp B/P (MAP) Pulse Ox O2 Delivery O2 Flow Rate FiO2 05/02/19 08:19 18 97 Room Air 05/02/19 07:00 98.1 90 135/75 (95) 98.1 Lab Results Laboratory Tests Test 04/30/19 20:14 04/30/19 23:06 White Blood Count 9.6 x10^3/uL (4.0-11.0) Red Blood Count 4.56 x10^6/uL (4.30-5.70) Hemoglobin 14.1 g/dL (13.0-17.5) Hematocrit 42.0 % (39.0-53.0) Mean Corpuscular Volume 92 fL (79-100) Mean Corpuscular Hemoglobin 31 pg (25-35) Mean Corpuscular Hemoglobin Concent 34 g/dL (31-37) Red Cell Distribution Width 13.6 % (11.5-14.5) Platelet Count 209 x10^3/uL (140-400) Neutrophils (%) (Auto) 85 % (31-73) Lymphocytes (%) (Auto) 7 % (24-48) Monocytes (%) (Auto) 6 % (0-9) Eosinophils (%) (Auto) 1 % (0-3) Basophils (%) (Auto) 1 % (0-3) Neutrophils # (Auto) 8.1 x10^3/uL (1.8-7.7) Lymphocytes # (Auto) 0.7 x10^3/uL (1.0-4.8) Monocytes # (Auto) 0.6 x10^3/uL (0.0-1.1) Eosinophils # (Auto) 0.1 x10^3/uL (0.0-0.7) Basophils # (Auto) 0.1 x10^3/uL (0.0-0.2) Sodium Level 140 mmol/L (136-145) Potassium Level 3.2 mmol/L (3.5-5.1) Chloride Level 101 mmol/L (98-107) Carbon Dioxide Level 31 mmol/L (21-32) Anion Gap 8 (6-14) Blood Urea Nitrogen 12 mg/dL (8-26) Creatinine 1.0 mg/dL (0.7-1.3) Estimated GFR (Cockcroft-Gault) 73.0 BUN/Creatinine Ratio 12 (6-20) Glucose Level 154 mg/dL (70-99) Calcium Level 8.9 mg/dL (8.5-10.1) Total Bilirubin 0.5 mg/dL (0.2-1.0) Aspartate Amino Transf (AST/SGOT) 17 U/L (15-37) Alanine Aminotransferase (ALT/SGPT) 18 U/L (16-63) Alkaline Phosphatase 98 U/L (46-116) Total Protein 7.1 g/dL (6.4-8.2) Albumin 3.7 g/dL (3.4-5.0) Albumin/Globulin Ratio 1.1 (1.0-1.7) Glucose (Fingerstick) 194 mg/dL (70-99) Brief Hospital Course Mr. Sanchez is a 73 old male with dementia and lives with at home, mechanical fall, fx the left humerus, spiral fx, non op mx per ortho, HE is 2-3 person assist, DNR< agreeable to SNU- dw SW MEds on chart Outside DNR i have signed Dc < 30 mins COnsults: ortho Proc; None Discharge Information Condition at Discharge: Improved, Stable Disposition/Orders: Other (snu) Scheduled Amlodipine Besylate (Amlodipine Besylate) 5 Mg Tablet, 5 MG PO QHS for HTN, (Reported) Entered as Reported by: DOMINIK PRICE RN on 05/01/19722 Last Action: Continued on 05/01/19809 by ANJEL HATCH Donepezil Hcl (Donepezil Hcl) 10 Mg Tablet, 2 TAB PO DAILY for dementia, #90 Ref 3 (Reported) Entered as Reported by: DOMINIK PRICE RN on 05/01/19722 Last Action: Continued on 05/01/19809 by ANJEL HATCH Hydrochlorothiazide (Hydrochlorothiazide Tablet) 12.5 Mg Tablet, 12.5 MG PO DAILY for DIURETIC, Ref 0 (Reported) Entered as Reported by: DOMINIK PRICE RN on 05/01/19722 Last Action: Converted on 05/01/19809 by ANJEL HATCH Memantine Hcl (Namenda) 10 Mg Tablet, 10 MG PO BID for dementia, (Reported) Entered as Reported by: DOMINIK PRICE RN on 05/01/19722 Last Action: Continued on 05/01/19809 by ANJEL HATCH Oxcarbazepine (Oxcarbazepine) 300 Mg Tablet, 1 TAB PO BID for aggresion for 30 Days, #60 Ref 0 (Reported) Entered as Reported by: DOMINIK PRICE RN on 05/01/19722 Last Action: Continued on 05/01/19809 by ANJEL HATCH Simvastatin (Simvastatin) 40 Mg Tablet, 1 TAB PO QHS for cholesterol, #30 Ref 5 (Reported) Entered as Reported by: DOMINIK PRICE RN on 05/01/19722 Last Action: Continued on 05/01/19809 by ANJEL HATCH Scheduled PRN Oxycodone/Apap 5-325 (Percocet 5-325 Mg Tablet ) 1 Each Tablet, 1 TAB PO PRN Q4HRS PRN for PAIN, #30 Prescribed by: ANJEL HATCH on 05/02/19 0751 ANJEL HATCH MD May 02, 2019 11:10
--- NOTE | 2019-05-02 11:25 | NUR ---
SW following. Chart reviewed, discussed with RN. Pt is from home with . Awaiting PT/OT. Pt currently on 1:1. XIOMARA will continue to follow.
[2019-05-02 15:00] VITALS: BP 128/80
[2019-05-02 19:00] VITALS: BP 122/66
[2019-05-02] MEDS: amLODIPine BESYLATE 5 MG TABLET PO SCH (21:08)
[2019-05-02] MEDS: SIMVASTATIN 40 MG TABLET. PO SCH (21:08)
[2019-05-02] MEDS: HALOPERIDOL LACTATE 5 MG/ML VIAL. IVP PRN (22:20)
[2019-05-02 23:00] VITALS: BP 151/78
[2019-05-03 03:00] VITALS: BP 134/66
[2019-05-03 07:00] VITALS: BP 114/66
[2019-05-03] MEDS: DONEPEZIL HCL 10 MG TABLET. PO SCH (08:21)
[2019-05-03] MEDS: OXcarbazepine 300 MG TABLET PO SCH ×2 (08:21→22:02)
[2019-05-03] MEDS: DOCUSATE SODIUM 100 MG CAPSULE. PO SCH (08:21)
[2019-05-03] MEDS: hydroCHLOROthiazide 12.5 MG CAPSULE PO SCH (08:21)
[2019-05-03] MEDS: MEMANTINE 10 MG TABLET. PO SCH ×2 (08:21→22:03)
[2019-05-03] MEDS: oxyCODONE/APAP 5/325 1 TAB TABLET PO PRN ×2 (08:23→22:03)
[2019-05-03 11:00] VITALS: BP 108/56
--- NOTE | 2019-05-03 11:02 | NUR ---
SW following for discharge planning. Pt under close observation. XIOMARA met with pt and pt's at bedside, agreeable to SNU. Pt's , Najma would like referral sent to [facility] (ph: [phone], fax: [phone]). Pt's has questions for [facility]. Not sure if plan is to take pt home after SNU. XIOMARA notified Linda at [facility] to please contact pt's . RN notified. XIOMARA will continue to follow.
--- NOTE | 2019-05-03 11:43 | PDOC ---
Provider Note Provider Note Waiting for insurance auth or some acceptance, XIOMARA working on it No change Outside DNR signed MAR done Jorge RN MEdically ready to dc today if we have bed ANJEL HATCH MD May 03, 2019 11:43
--- NOTE | 2019-05-03 14:13 | NUR ---
Pt has been on 1:1 observation today 2nd to hx dimentia, falls and impulsiveness. at bedside at present. PT walked pt in [place] with brace and sling Lt arm/shoulder. Pain med given this morn with good results. Pt able top feed self. asleep at present. in room. Fall precautions explained and questions answered best possible. Pt is DNR. signed out of hospital DNR as did Dr Liu in prep for SNU
[2019-05-03 15:00] VITALS: BP 127/75
[2019-05-03 19:20] VITALS: BP 145/74
[2019-05-03] MEDS: SIMVASTATIN 40 MG TABLET. PO SCH (22:02)
[2019-05-03] MEDS: amLODIPine BESYLATE 5 MG TABLET PO SCH (22:03)
[2019-05-03] MEDS: HALOPERIDOL LACTATE 5 MG/ML VIAL. IVP PRN (22:04)
[2019-05-03 23:08] VITALS: BP 140/75
[2019-05-04 03:24] VITALS: BP 119/65
[2019-05-04 07:00] VITALS: BP 117/67
[2019-05-04] MEDS: DOCUSATE SODIUM 100 MG CAPSULE. PO SCH (07:29)
[2019-05-04] MEDS: oxyCODONE/APAP 5/325 1 TAB TABLET PO PRN (07:29)
[2019-05-04] MEDS: OXcarbazepine 300 MG TABLET PO SCH ×2 (07:29→21:23)
[2019-05-04] MEDS: MEMANTINE 10 MG TABLET. PO SCH ×2 (07:30→21:23)
[2019-05-04] MEDS: hydroCHLOROthiazide 12.5 MG CAPSULE PO SCH (07:30)
[2019-05-04] MEDS: DONEPEZIL HCL 10 MG TABLET. PO SCH (07:30)
[2019-05-04 09:09] LABS: BASO # 0.1 x10^3/uL (0.0-0.2); BASO % 1 % (0-3); EOS # 0.1 x10^3/uL (0.0-0.7); EOS % 1 % (0-3); LYMPH # 0.8 x10^3/uL (1.0-4.8); LYMPH % 8 % (24-48); MEAN CORPUSCULAR HEMOGLOBIN 32 pg (25-35); MEAN CORPUSCULAR HGB CONC 35 g/dL (31-37); MEAN CORPUSCULAR VOLUME 91 fL (79-100); MONO # 0.7 x10^3/uL (0.0-1.1); MONO % 7 % (0-9); NEUT # 8.4 x10^3/uL (1.8-7.7); NEUT % 83 % (31-73); PLATELET COUNT 195 x10^3/uL (140-400); RED BLOOD COUNT 2.85 x10^6/uL (4.30-5.70); RED CELL DISTRIBUTION WIDTH 13.3 % (11.5-14.5); WHITE BLOOD COUNT 10.1 x10^3/uL (4.0-11.0)
[2019-05-04 09:16] LABS: HEMOGLOBIN 9.1 g/dL (13.0-17.5)
[2019-05-04 09:21] LABS: CALCIUM 8.2 mg/dL (8.5-10.1); POTASSIUM 3.5 mmol/L (3.5-5.1)
--- NOTE | 2019-05-04 10:22 | PDOC ---
PROGRESS NOTES Chief Complaint Chief Complaint Acute left spiral fracture humerus - non op mx LEft distal shaft humeral fx - non op mx TRaumatic fall, mechanical at home, initial encounter Dementia on meds hTN, dyslipidemia on meds DNR Acute precip drop hgb - 9 from 14 History of Present Illness History of Present Illness Still waiting on placement SO i decided to check labs bec has been a while ANd hgb dropped to 9 from 14 -0 not on any IVF, no reported obvious blood loss LEFt arm inspected, bruised, swollen, on cast PLAN: CHeck CT left arm without contrast HH tmr Hold any dc plans today pending above Vitals Vitals Vital Signs Date Time Temp Pulse Resp B/P (MAP) Pulse Ox O2 Delivery O2 Flow Rate FiO2 05/04/19 08:29 Room Air 05/04/19 07:00 97.5 86 14 117/67 (84) 95 97.5 Physical Exam General: Alert, Cooperative, No acute distress Heart: Regular rate, Normal S1, Normal S2, No murmurs Lungs: Clear Abdomen: Soft Extremities: Other (he has a left arm sling but took it off. The left arm has diffuse swelling and there is some ecchymosis but there is no evidence of an open fracture. His hands are arthritic with large Heberden's and Richard's nodes and probably have decreased finger range of motion chronically, but he was able to demonstrate motor function of the radial, ulnar, and median nerves distally without difficulty. Pulses and sensation are intact distally. The elbow is nontender.) Skin: Other (ecchymosis left upper arm) Labs LABS Laboratory Tests Test 05/04/19 08:55 White Blood Count 10.1 x10^3/uL (4.0-11.0) Red Blood Count 2.85 x10^6/uL (4.30-5.70) Hemoglobin 9.1 g/dL (13.0-17.5) Hematocrit 26.0 % (39.0-53.0) Mean Corpuscular Volume 91 fL (79-100) Mean Corpuscular Hemoglobin 32 pg (25-35) Mean Corpuscular Hemoglobin Concent 35 g/dL (31-37) Red Cell Distribution Width 13.3 % (11.5-14.5) Platelet Count 195 x10^3/uL (140-400) Neutrophils (%) (Auto) 83 % (31-73) Lymphocytes (%) (Auto) 8 % (24-48) Monocytes (%) (Auto) 7 % (0-9) Eosinophils (%) (Auto) 1 % (0-3) Basophils (%) (Auto) 1 % (0-3) Neutrophils # (Auto) 8.4 x10^3/uL (1.8-7.7) Lymphocytes # (Auto) 0.8 x10^3/uL (1.0-4.8) Monocytes # (Auto) 0.7 x10^3/uL (0.0-1.1) Eosinophils # (Auto) 0.1 x10^3/uL (0.0-0.7) Basophils # (Auto) 0.1 x10^3/uL (0.0-0.2) Sodium Level 138 mmol/L (136-145) Potassium Level 3.5 mmol/L (3.5-5.1) Chloride Level 101 mmol/L (98-107) Carbon Dioxide Level 29 mmol/L (21-32) Anion Gap 8 (6-14) Blood Urea Nitrogen 29 mg/dL (8-26) Creatinine 1.0 mg/dL (0.7-1.3) Estimated GFR (Cockcroft-Gault) 73.0 Glucose Level 207 mg/dL (70-99) Calcium Level 8.2 mg/dL (8.5-10.1) Review of Systems Review of Systems left shoulder pain, all else 14 pt neg, or limited, some dementia Assessment and Plan Assessmemt and Plan Problems Medical Problems: (1) Chin contusion Status: Acute (2) Dementia Status: Chronic (3) DNR (do not resuscitate) Status: Chronic (4) Dyslipidemia Status: Chronic (5) Fall Status: Acute (6) HTN (hypertension) Status: Chronic (7) Left humeral fracture Status: Acute (8) Spiral fracture of shaft of humerus Status: Acute Comment Review of Relevant I have reviewed the following items deepti (where applicable) has been applied. Labs Laboratory Tests Test 05/04/19 08:55 White Blood Count 10.1 x10^3/uL (4.0-11.0) Red Blood Count 2.85 x10^6/uL (4.30-5.70) Hemoglobin 9.1 g/dL (13.0-17.5) Hematocrit 26.0 % (39.0-53.0) Mean Corpuscular Volume 91 fL (79-100) Mean Corpuscular Hemoglobin 32 pg (25-35) Mean Corpuscular Hemoglobin Concent 35 g/dL (31-37) Red Cell Distribution Width 13.3 % (11.5-14.5) Platelet Count 195 x10^3/uL (140-400) Neutrophils (%) (Auto) 83 % (31-73) Lymphocytes (%) (Auto) 8 % (24-48) Monocytes (%) (Auto) 7 % (0-9) Eosinophils (%) (Auto) 1 % (0-3) Basophils (%) (Auto) 1 % (0-3) Neutrophils # (Auto) 8.4 x10^3/uL (1.8-7.7) Lymphocytes # (Auto) 0.8 x10^3/uL (1.0-4.8) Monocytes # (Auto) 0.7 x10^3/uL (0.0-1.1) Eosinophils # (Auto) 0.1 x10^3/uL (0.0-0.7) Basophils # (Auto) 0.1 x10^3/uL (0.0-0.2) Sodium Level 138 mmol/L (136-145) Potassium Level 3.5 mmol/L (3.5-5.1) Chloride Level 101 mmol/L (98-107) Carbon Dioxide Level 29 mmol/L (21-32) Anion Gap 8 (6-14) Blood Urea Nitrogen 29 mg/dL (8-26) Creatinine 1.0 mg/dL (0.7-1.3) Estimated GFR (Cockcroft-Gault) 73.0 Glucose Level 207 mg/dL (70-99) Calcium Level 8.2 mg/dL (8.5-10.1) Laboratory Tests Test 05/04/19 08:55 White Blood Count 10.1 x10^3/uL (4.0-11.0) Red Blood Count 2.85 x10^6/uL (4.30-5.70) Hemoglobin 9.1 g/dL (13.0-17.5) Hematocrit 26.0 % (39.0-53.0) Mean Corpuscular Volume 91 fL (79-100) Mean Corpuscular Hemoglobin 32 pg (25-35) Mean Corpuscular Hemoglobin Concent 35 g/dL (31-37) Red Cell Distribution Width 13.3 % (11.5-14.5) Platelet Count 195 x10^3/uL (140-400) Neutrophils (%) (Auto) 83 % (31-73) Lymphocytes (%) (Auto) 8 % (24-48) Monocytes (%) (Auto) 7 % (0-9) Eosinophils (%) (Auto) 1 % (0-3) Basophils (%) (Auto) 1 % (0-3) Neutrophils # (Auto) 8.4 x10^3/uL (1.8-7.7) Lymphocytes # (Auto) 0.8 x10^3/uL (1.0-4.8) Monocytes # (Auto) 0.7 x10^3/uL (0.0-1.1) Eosinophils # (Auto) 0.1 x10^3/uL (0.0-0.7) Basophils # (Auto) 0.1 x10^3/uL (0.0-0.2) Sodium Level 138 mmol/L (136-145) Potassium Level 3.5 mmol/L (3.5-5.1) Chloride Level 101 mmol/L (98-107) Carbon Dioxide Level 29 mmol/L (21-32) Anion Gap 8 (6-14) Blood Urea Nitrogen 29 mg/dL (8-26) Creatinine 1.0 mg/dL (0.7-1.3) Estimated GFR (Cockcroft-Gault) 73.0 Glucose Level 207 mg/dL (70-99) Calcium Level 8.2 mg/dL (8.5-10.1) Medications Current Medications Morphine Sulfate (Morphine Sulfate) 4 mg PRN Q2HR PRN IV PAIN Last administered on 05/01/19at 05:35; Start 04/30/19 at 21:15; Stop 05/01/19 at 08:18; Status DC Haloperidol Lactate (Haldol Inj) 2 mg 1X ONCE IVP Last administered on 05/01/19at 03:04; Start 05/01/19 at 03:00; Stop 05/01/19 at 03:01; Status DC Amlodipine Besylate (Norvasc) 5 mg QHS PO Last administered on 05/03/19 22:03; Start 05/01/19 at 21:00 Donepezil HCl (Aricept) 20 mg DAILY PO Last administered on 05/04/19 07:30; Start 05/01/19 at 09:00 Memantine (Namenda) 10 mg BID PO Last administered on 05/04/19 07:30; Start 05/01/19 at 09:00 Oxcarbazepine (Trileptal) 300 mg BID PO Last administered on 05/04/19 07:29; Start 05/01/19 at 09:00 Simvastatin (Zocor) 40 mg QHS PO Last administered on 05/03/19 22:02; Start 05/01/19 at 21:00 Hydrochlorothiazide (Microzide) 12.5 mg DAILY PO Last administered on 05/04/19 07:30; Start 05/01/19 at 09:00 Haloperidol Lactate (Haldol Inj) 5 mg PRN Q6HRS PRN IVP AGITATION 2ND CHOICE Last administered on 05/03/19 22:04; Start 05/01/19 at 08:15 Lorazepam (Ativan Inj) 2 mg PRN Q4HRS PRN IVP ANXIETY / AGITATION; Start 05/01/19 at 08:15 Morphine Sulfate (Morphine Sulfate) 2 mg PRN Q2HR PRN IV PAIN Last administered on 05/01/19 10:30; Start 05/01/19 at 08:15 Oxycodone/ Acetaminophen (Percocet 5/325) 1 tab PRN Q4HRS PRN PO PAIN Last administered on 05/04/19 07:29; Start 05/01/19 at 08:15 Magnesium Hydroxide (Milk Of Magnesia) 2,400 mg PRN DAILY PRN PO CONSTIPATION; Start 05/01/19 at 08:15 Docusate Sodium (Colace) 100 mg DAILY PO Last administered on 05/04/19 07:29; Start 05/01/19 at 09:00 Polyethylene Glycol (miraLAX PACKET) 17 gm PRN DAILY PRN PO CONSTIPATION; Start 05/01/19 at 08:15 Sodium Chloride 1,000 ml @ 75 mls/hr 1X ONCE IV Last administered on 05/01/19 13:30; Start 05/01/19 at 11:00; Stop 05/02/19 at 00:19; Status DC Active Scripts Active Percocet 5-325 Mg Tablet (Oxycodone/Acetaminophen) 1 Each Tablet 1 Tab PO PRN Q4HRS PRN Reported Amlodipine Besylate 5 Mg Tablet 5 Mg PO QHS Hydrochlorothiazide Tablet (Hydrochlorothiazide) 12.5 Mg Tablet 12.5 Mg PO DAILY Simvastatin 40 Mg Tablet 1 Tab PO QHS Oxcarbazepine 300 Mg Tablet 1 Tab PO BID 30 Days Donepezil Hcl 10 Mg Tablet 2 Tab PO DAILY Namenda (Memantine Hcl) 10 Mg Tablet 10 Mg PO BID Vitals/I & O Vital Sign - Last 24 Hours 05/03/19 05/03/19 05/03/19 05/03/19 11:00 15:00 19:20 19:45 Temp 97.8 97.9 98.9 97.8 97.9 98.9 Pulse 85 79 89 Resp 16 16 18 B/P (MAP) 108/56 (73) 127/75 (92) 145/74 (97) Pulse Ox 97 99 97 O2 Delivery Room Air Room Air Room Air Room Air 05/03/19 05/03/19 05/03/19 05/03/19 22:03 22:03 23:08 23:20 Temp 98.9 98.9 Pulse 92 88 Resp 16 18 18 B/P (MAP) 118/77 140/75 (96) Pulse Ox 98 O2 Delivery Room Air Room Air Room Air 05/04/19 05/04/19 05/04/19 05/04/19 03:24 07:00 07:29 08:29 Temp 98.4 97.5 98.4 97.5 Pulse 71 86 Resp 18 14 B/P (MAP) 119/65 (83) 117/67 (84) Pulse Ox 96 95 O2 Delivery Room Air Room Air Room Air Room Air Intake and Output 05/03/19 05/03/19 05/04/19 15:00 23:00 07:00 Intake Total 480 ml 180 ml 480 ml Output Total 550 ml Balance 480 ml 180 ml -70 ml ANJEL HATCH MD May 04, 2019 10:22
--- NOTE | 2019-05-04 10:23 | NUR ---
[facility] following. Discussed with RN, pt is on video observation, not 1:1 with sitter. SW awaiting acceptance decision for [facility], as well as insurance auth once acceptance decision has been made. [facility] will continue to follow. Addendum: 05/04/19 at 1432 by EMILEE SOLANO [facility] following. Pt has been accepted [facility] pending insurance auth. [facility] will continue to follow. RN notified.
[2019-05-04 10:57] VITALS: BP 116/67
--- NOTE | 2019-05-04 12:16 | RAD ---
EXAM: CT left upper extremity without contrast. HISTORY: Fracture. Blood loss, bruising. Assess for hematoma. TECHNIQUE: CT of the left humerus was performed without intravenous contrast. One or more of the following individualized dose reduction techniques were utilized for this examination: 1. Automated exposure control. 2. Adjustment of the mA and/or kV according to patient size. 3. Use of iterative reconstruction technique. COMPARISON: 05/01/2019. FINDINGS: Lung windows reveal mild atelectasis. There is a 3 mm calculus in the visualized portion of the left kidney. A calcified granuloma is noted in the spleen. There are chronic left rib fractures. An oblique fracture of the proximal humeral metaphysis demonstrates stable lateral displacement and angulation of the distal fracture fragment. Shortening measures approximately 3.5 cm with associated impaction. Glenohumeral alignment is maintained. 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 A small amount of soft tissue gas is now noted within the proximal triceps muscle and anterior deltoid muscle. There is no discrete hematoma or significant joint effusion. Subcutaneous swelling is noted throughout the visualized upper arm and within the left lateral chest wall. IMPRESSION: 1. Small amount of soft tissue gas within the triceps and deltoid musculature. In the absence of instrumentation, correlate to exclude soft tissue infection. 2. Unchanged oblique, shortened, laterally displaced and angulated fracture of the proximal humeral metaphysis. Electronically signed by: Viktoria Cortez MD (05/04/2019 12:13 PM) [facility]
[2019-05-04] MEDS ORDERED: PIPERACILLIN/TAZOBACTAM 3.375 GM in IV NORMAL SALINE 50ML 50 ML IV ONE (14:00)
[2019-05-04 15:00] VITALS: BP 98/59
--- NOTE | 2019-05-04 15:00 | PDOC ---
Infectious Disease Note Vital Sign Vital Signs Vital Signs Date Time Temp Pulse Resp B/P (MAP) Pulse Ox O2 Delivery O2 Flow Rate FiO2 05/04/19 10:57 98.3 69 18 116/67 (83) 92 Room Air 98.3 Labs Lab Laboratory Tests Test 05/04/19 08:55 White Blood Count 10.1 x10^3/uL (4.0-11.0) Red Blood Count 2.85 x10^6/uL (4.30-5.70) Hemoglobin 9.1 g/dL (13.0-17.5) Hematocrit 26.0 % (39.0-53.0) Mean Corpuscular Volume 91 fL (79-100) Mean Corpuscular Hemoglobin 32 pg (25-35) Mean Corpuscular Hemoglobin Concent 35 g/dL (31-37) Red Cell Distribution Width 13.3 % (11.5-14.5) Platelet Count 195 x10^3/uL (140-400) Neutrophils (%) (Auto) 83 % (31-73) Lymphocytes (%) (Auto) 8 % (24-48) Monocytes (%) (Auto) 7 % (0-9) Eosinophils (%) (Auto) 1 % (0-3) Basophils (%) (Auto) 1 % (0-3) Neutrophils # (Auto) 8.4 x10^3/uL (1.8-7.7) Lymphocytes # (Auto) 0.8 x10^3/uL (1.0-4.8) Monocytes # (Auto) 0.7 x10^3/uL (0.0-1.1) Eosinophils # (Auto) 0.1 x10^3/uL (0.0-0.7) Basophils # (Auto) 0.1 x10^3/uL (0.0-0.2) Sodium Level 138 mmol/L (136-145) Potassium Level 3.5 mmol/L (3.5-5.1) Chloride Level 101 mmol/L (98-107) Carbon Dioxide Level 29 mmol/L (21-32) Anion Gap 8 (6-14) Blood Urea Nitrogen 29 mg/dL (8-26) Creatinine 1.0 mg/dL (0.7-1.3) Estimated GFR (Cockcroft-Gault) 73.0 Glucose Level 207 mg/dL (70-99) Calcium Level 8.2 mg/dL (8.5-10.1) Objective Assessment pt seen, consult dictated Plan Plan of Care / ASTON GARNETT MD May 04, 2019 15:00
[2019-05-04 19:59] VITALS: BP 149/71
[2019-05-04] MEDS: amLODIPine BESYLATE 5 MG TABLET PO SCH (21:23)
[2019-05-04] MEDS: SIMVASTATIN 40 MG TABLET. PO SCH (21:23)
[2019-05-05 03:15] VITALS: BP 146/76
--- NOTE | 2019-05-05 03:38 | CONS ---
DATE OF CONSULTATION: 05/04/2019 REQUESTING PHYSICIAN: Dr. Liu. REASON FOR CONSULTATION: Question soft tissue infection. HISTORY OF PRESENT ILLNESS: This is a 73-year-old gentleman, who does have dementia, who fell at home and was brought in. The patient was found to have left humerus fracture. The patient was seen by Dr. Rendon and conservative management with the splint has been advised. Subsequently, the patient had a drop in hemoglobin, swelling of the upper arm and a repeat CT showed some air in the triceps and deltoids, hence question of infection has been raised. The patient has no fever. The patient has no white count. Actually, his behavior is normal as I discussed with the at the bedside and the patient denies any complaints. No nausea, vomiting, diarrhea, chest pain, shortness of breath, abdominal pain, urinary symptoms or bowel symptoms. Again, the patient is demented, but according to , the patient is behaving his normal. PAST MEDICAL HISTORY: Positive for dementia, hypertension, hyperlipidemia. SOCIAL HISTORY: Negative for smoking, alcohol, or illicit drug use. The patient is taken care of by at home. ALLERGIES: No known drug allergies. CURRENT MEDICATIONS: Reviewed. REVIEW OF SYSTEMS: As per HPI, all other systems reviewed and are negative. PHYSICAL EXAMINATION: GENERAL: Alert and the patient communicates, but the memory is very poor, not in any distress. The patient is able to answer simple questions appropriately. VITAL SIGNS: Stable, afebrile. HEENT: NAD. NECK: Supple, no JVP, no lymphadenopathy. LUNGS: Clear. HEART: S1, S2 regular. ABDOMEN: Benign. EXTREMITIES: Left upper extremity has significant swelling and bruising all throughout the upper arm and the forearm. There is no break in the skin. There are no crepitations in the tissue. Distal neurovascular intact. SKIN: Rest of the skin examination unremarkable. NEUROLOGIC: The patient is alert, awake, able to answer simple questions appropriately, but he is demented. LABORATORY DATA: White count is 10,000, hemoglobin 9.1, which dropped from 14, platelets are normal. BUN and creatinine is normal. IMAGING STUDIES: Numerous x-rays and CT done all reviewed. IMPRESSION: 1. Left humerus fracture after a fall. 2. Left upper extremity hematoma. 3. Left upper extremity reported small soft tissue gas within the triceps and deltoid of unclear significance. There is no crepitation. There are no signs of infection and there is no systemic illness with the infection. 4. Dementia. 5. Hypertension. RECOMMENDATIONS: I do not see the need for any antibiotics. The patient can be discharged to rehabilitation as planned, supportive care and the patient may need reevaluation if his condition changes. Thank you very much, Dr. Liu, for giving me the opportunity to participate in this patient's care. ASTON GARNETT MD DR: BEAU/es JOB#: [id number] / [id number]
[2019-05-05 05:40] LABS: HEMATOCRIT 25.5 % (39.0-53.0); HEMOGLOBIN 8.8 g/dL (13.0-17.5)
[2019-05-05 07:00] VITALS: BP 117/65
[2019-05-05] MEDS: OXcarbazepine 300 MG TABLET PO SCH (08:30)
[2019-05-05] MEDS: hydroCHLOROthiazide 12.5 MG CAPSULE PO SCH (08:30)
[2019-05-05] MEDS: MEMANTINE 10 MG TABLET. PO SCH (08:30)
[2019-05-05] MEDS: DONEPEZIL HCL 10 MG TABLET. PO SCH (08:30)
[2019-05-05] MEDS: DOCUSATE SODIUM 100 MG CAPSULE. PO SCH (08:30)
[2019-05-05] MEDS ORDERED: IV 1/2 NORMAL SALINE 1,000 ML IV ONE (08:45)
--- NOTE | 2019-05-05 08:47 | PDOC ---
Infectious Disease Note Subjective Subjective pt is awake, eating, says feeling good ROS ROS no n/v/d/ Vital Sign Vital Signs Vital Signs Date Time Temp Pulse Resp B/P (MAP) Pulse Ox O2 Delivery O2 Flow Rate FiO2 05/05/19 07:52 Room Air 05/05/19 03:15 98.1 79 18 146/76 (99) 97 98.1 Physical Exam PHYSICAL EXAM GENERAL: Alert and the patient communicates, but the memory is very poor, not in any distress. The patient is able to answer simple questions appropriately. VITAL SIGNS: Stable, afebrile. HEENT: NAD. NECK: Supple, no JVP, no lymphadenopathy. LUNGS: Clear. HEART: S1, S2 regular. ABDOMEN: Benign. EXTREMITIES: Left upper extremity has significant swelling and bruising all throughout the upper arm and the forearm. There is no break in the skin. There are no crepitations in the tissue. Distal neurovascular intact. SKIN: Rest of the skin examination unremarkable. NEUROLOGIC: The patient is alert, awake, able to answer simple questions appropriately, but he is demented. Labs Lab Laboratory Tests Test 05/04/19 08:55 05/05/19 04:50 White Blood Count 10.1 x10^3/uL (4.0-11.0) Red Blood Count 2.85 x10^6/uL (4.30-5.70) Hemoglobin 9.1 g/dL (13.0-17.5) 8.8 g/dL (13.0-17.5) Hematocrit 26.0 % (39.0-53.0) 25.5 % (39.0-53.0) Mean Corpuscular Volume 91 fL (79-100) Mean Corpuscular Hemoglobin 32 pg (25-35) Mean Corpuscular Hemoglobin Concent 35 g/dL (31-37) 35 g/dL (31-37) Red Cell Distribution Width 13.3 % (11.5-14.5) Platelet Count 195 x10^3/uL (140-400) Neutrophils (%) (Auto) 83 % (31-73) Lymphocytes (%) (Auto) 8 % (24-48) Monocytes (%) (Auto) 7 % (0-9) Eosinophils (%) (Auto) 1 % (0-3) Basophils (%) (Auto) 1 % (0-3) Neutrophils # (Auto) 8.4 x10^3/uL (1.8-7.7) Lymphocytes # (Auto) 0.8 x10^3/uL (1.0-4.8) Monocytes # (Auto) 0.7 x10^3/uL (0.0-1.1) Eosinophils # (Auto) 0.1 x10^3/uL (0.0-0.7) Basophils # (Auto) 0.1 x10^3/uL (0.0-0.2) Sodium Level 138 mmol/L (136-145) Potassium Level 3.5 mmol/L (3.5-5.1) Chloride Level 101 mmol/L (98-107) Carbon Dioxide Level 29 mmol/L (21-32) Anion Gap 8 (6-14) Blood Urea Nitrogen 29 mg/dL (8-26) Creatinine 1.0 mg/dL (0.7-1.3) Estimated GFR (Cockcroft-Gault) 73.0 Glucose Level 207 mg/dL (70-99) Calcium Level 8.2 mg/dL (8.5-10.1) Objective Assessment 1. Left humerus fracture after a fall. 2. Left upper extremity hematoma. 3. Left upper extremity reported small soft tissue gas within the triceps and deltoid of unclear significance. There is no crepitation. There are no signs of infection and there is no systemic illness with the infection. 4. Dementia. 5. Hypertension. Plan Plan of Care no need for antibiotics supportive care ok to d/c to [facility] ASTON GARNETT MD May 05, 2019 08:47
[2019-05-05 11:00] VITALS: BP 107/64
--- NOTE | 2019-05-05 11:31 | PDOC3 ---
Discharge Summary Visit Information Date of Admission: Apr 30, 2019 Date of Discharge: May 05, 2019 Admitting Diagnosis Comment: Acute left spiral fracture humerus - non op mx LEft distal shaft humeral fx - non op mx TRaumatic fall, mechanical at home, initial encounter Dementia on meds hTN, dyslipidemia on meds DNR Acute precip drop hgb - 9 from 14 Final Diagnosis Problems Medical Problems: (1) Chin contusion Status: Acute (2) Dementia Status: Chronic (3) DNR (do not resuscitate) Status: Chronic (4) Dyslipidemia Status: Chronic (5) Fall Status: Acute (6) HTN (hypertension) Status: Chronic (7) Left humeral fracture Status: Acute (8) Spiral fracture of shaft of humerus Status: Acute Brief Hospital Course Allergies Allergies Coded Allergies Type Severity Reaction Last Updated Verified No Known Drug Allergies 04/30/19 No Vital Signs Vital Signs Date Time Temp Pulse Resp B/P (MAP) Pulse Ox O2 Delivery O2 Flow Rate FiO2 05/05/19 07:52 Room Air 05/05/19 07:00 97.5 79 20 117/65 (82) 100 97.5 Lab Results Laboratory Tests Test 05/04/19 08:55 05/05/19 04:50 White Blood Count 10.1 x10^3/uL (4.0-11.0) Red Blood Count 2.85 x10^6/uL (4.30-5.70) Hemoglobin 9.1 g/dL (13.0-17.5) 8.8 g/dL (13.0-17.5) Hematocrit 26.0 % (39.0-53.0) 25.5 % (39.0-53.0) Mean Corpuscular Volume 91 fL (79-100) Mean Corpuscular Hemoglobin 32 pg (25-35) Mean Corpuscular Hemoglobin Concent 35 g/dL (31-37) 35 g/dL (31-37) Red Cell Distribution Width 13.3 % (11.5-14.5) Platelet Count 195 x10^3/uL (140-400) Neutrophils (%) (Auto) 83 % (31-73) Lymphocytes (%) (Auto) 8 % (24-48) Monocytes (%) (Auto) 7 % (0-9) Eosinophils (%) (Auto) 1 % (0-3) Basophils (%) (Auto) 1 % (0-3) Neutrophils # (Auto) 8.4 x10^3/uL (1.8-7.7) Lymphocytes # (Auto) 0.8 x10^3/uL (1.0-4.8) Monocytes # (Auto) 0.7 x10^3/uL (0.0-1.1) Eosinophils # (Auto) 0.1 x10^3/uL (0.0-0.7) Basophils # (Auto) 0.1 x10^3/uL (0.0-0.2) Sodium Level 138 mmol/L (136-145) Potassium Level 3.5 mmol/L (3.5-5.1) Chloride Level 101 mmol/L (98-107) Carbon Dioxide Level 29 mmol/L (21-32) Anion Gap 8 (6-14) Blood Urea Nitrogen 29 mg/dL (8-26) Creatinine 1.0 mg/dL (0.7-1.3) Estimated GFR (Cockcroft-Gault) 73.0 Glucose Level 207 mg/dL (70-99) Calcium Level 8.2 mg/dL (8.5-10.1) Laboratory Tests Test 05/05/19 04:50 Hemoglobin 8.8 g/dL (13.0-17.5) Hematocrit 25.5 % (39.0-53.0) Mean Corpuscular Hemoglobin Concent 35 g/dL (31-37) Brief Hospital Course Mr. Sanchez is a 73 old [sex] who presented with [ ] addendum to dc summ done days ago: We rechecked labs as it was taking long time for insurance to auth [facility] stay, Drop in hgb from 14 to 9, INterval CT of that arm showed no hematoma but concerns of gas formation, hence consulted ID< PT is not febrile, normal wbc, Thatleft arm is bruised, swollen, black and blue and tender, No need for Abx coverage per ID HE seems perky today as I see him HE will go to [facility] today hopefully with that left arm brace and ff up DR Pandey on u dc Might take long times to heal, delayed healing in a spiral humeral fx HE dos have dementia, lived at home with , DNR HE can be calm but confused at times HE claims he is voiding fine currently - had some issues earlier on To SNU MD, might want to recheck H and H few days, has been dropping for us but no hemtaoma on that left arm Discharge Information Condition at Discharge: Improved, Stable Follow Up: Weeks (Dr Pandey on U dc) Disposition/Orders: Other (snu) Scheduled Amlodipine Besylate (Amlodipine Besylate) 5 Mg Tablet, 5 MG PO QHS for HTN, (Reported) Entered as Reported by: DOMINIK PRICE RN on 05/01/19722 Last Action: Continued on 05/01/19809 by ANJEL HATCH Donepezil Hcl (Donepezil Hcl) 10 Mg Tablet, 2 TAB PO DAILY for dementia, #90 Ref 3 (Reported) Entered as Reported by: DOMINIK PRICE RN on 05/01/19722 Last Action: Continued on 05/01/19809 by ANJEL HATCH Hydrochlorothiazide (Hydrochlorothiazide Tablet) 12.5 Mg Tablet, 12.5 MG PO DAILY for DIURETIC, Ref 0 (Reported) Entered as Reported by: DOMINIK PRICE RN on 05/01/19722 Last Action: Converted on 05/01/19809 by ANJEL HATCH Memantine Hcl (Namenda) 10 Mg Tablet, 10 MG PO BID for dementia, (Reported) Entered as Reported by: DOMINIK PRICE RN on 05/01/19722 Last Action: Continued on 05/01/19809 by ANJEL HATCH Oxcarbazepine (Oxcarbazepine) 300 Mg Tablet, 1 TAB PO BID for aggresion for 30 Days, #60 Ref 0 (Reported) Entered as Reported by: DOMINIK PRICE RN on 05/01/19722 Last Action: Continued on 05/01/19809 by ANJEL HATCH Simvastatin (Simvastatin) 40 Mg Tablet, 1 TAB PO QHS for cholesterol, #30 Ref 5 (Reported) Entered as Reported by: DOMINIK PRICE RN on 05/01/19722 Last Action: Continued on 05/01/19809 by ANJEL HATCH Scheduled PRN Oxycodone/Apap 5-325 (Percocet 5-325 Mg Tablet ) 1 Each Tablet, 1 TAB PO PRN Q4HRS PRN for PAIN, #30 Prescribed by: ANJEL HATCH on 05/02/19 0751 ANJEL HATCH MD May 05, 2019 11:31
--- NOTE | 2019-05-05 12:44 | NUR ---
SW following. Discussed with RN, insurance has given auth for pt to go to SNU. Transport set up for between [id number]. SW contacted pt's to notify. verbally signed pt choice and rights letters (placed on chart). RN notified.
--- NOTE | 2019-05-05 14:47 | NUR ---
Discharge Note: KORTNEY GARZA [place] Discharge instructions and discharge home medications reviewed with Other facility and a copy given. All questions have been answered and understanding verbalized. The following instructions and handouts were given: Diet, activity, medication list and follow up instructions given to healthcare resort. Spoke with Marly at [facility] and gave report on patient. Discontinued lines and drains: Peripheral IV discontinued and catheter intact. Patient discharged to [facility] with Self via Wheelchair
== END 2019-05-05 13:45 | DRG 563 ==
LOC: ER 18:51 → ED HOLD 22:46 → 4 NORTH 23:59
PROVIDERS: ADMIT Internal Medicine; ATTEND Internal Medicine
DX: S42.342A Displaced spiral fracture of shaft of humerus, left arm, initial encounter for closed fracture (principal); R71.0 Precipitous drop in hematocrit; E78.00 Pure hypercholesterolemia, unspecified; I10 Essential (primary) hypertension; E11.9 Type 2 diabetes mellitus without complications; F03.90 Unspecified dementia, unspecified severity, without behavioral disturbance, psychotic disturbance, mood disturbance, and anxiety; S00.83XA Contusion of other part of head, initial encounter; Z66 Do not resuscitate; E78.5 Hyperlipidemia, unspecified; W18.39XA Other fall on same level, initial encounter; Y93.89 Activity, other specified; Y92.89 Other specified places as the place of occurrence of the external cause; Y99.8 Other external cause status; S40.022A Contusion of left upper arm, initial encounter; R29.6 Repeated falls
CPT/HCPCS: 36415; 70450; 70486; 72125; 73060; 73070; 73200; 80048; 80053; 82962; 85014; 85018; 85025; J1630; J2270; J2543; J7030; 97110; 97116; 97530; 97535; 99285-25; G0378